=== PATIENT | female | born 1950 | race Asian ===

== ENCOUNTER 2017-01-05 17:12 | Inpatient (IN) | payer MEDICAID, MEDICARE ==
[~2017-01-05] VITALS: Ht 152.4 cm; Wt 45.4 kg
[~2017-01-05 17:12] MED LIST: ASPIRIN325 MG PO; BENICAR40 MG PO; NKM
[2017-01-05] MEDS ORDERED: DiphenhydrAMINE 50mg/ml Inj IVP ONE (17:30)
[2017-01-05] MEDS ORDERED: Metoclopramide 10mg/2ml Inj IVP ONE (17:30)
--- NOTE | 2017-01-05 17:51 | Emergency Room Report ---
History of Present Illness General Chief Complaint: Alcohol Intoxication Source: Patient, EMS Present Illness HPI Patient presents with complaints of abdominal pain Patient history is extremity difficult patient appears confused Does not follow commands appropriately and does not respond to questions appropriately Patient has been here previously has a colostomy in place Has also history of alcohol intoxication and there was question of alcohol ingestion today History of present illness is otherwise significantly limited Allergies: Coded Allergies: No Known Allergies (Unverified , 10/05/12) UNABLE TO ASSESS (Unverified , 10/29/12) Patient History Limited by: medical condition Past Medical History: see triage record Pertinent Family History: unable to obtain Now: No Reviewed Nursing Documentation: PMH: Agreed, PSxH: Agreed Nursing Documentation-PMH Past Medical History: No Stated History Hx Cardiac Problems: Yes Hx Hypertension: Yes Hx Diabetes: Yes Hx Cancer: No Hx Gastrointestinal Problems: Yes Hx Neurological Problems: No Review of Systems All Other Systems: limited - Other than the ones mentioned in the history of present illness all others are reviewed however they do stay limited due to the patient's mental status Physical Exam Vital Signs Date Time Temp Pulse Resp B/P Pulse Ox O2 Delivery O2 Flow Rate FiO2 01/05/17 17:14 97.5 89 16 117/75 99 Room Air Sp02 EP Interpretation: reviewed, normal General Appearance: no apparent distress Head: normocephalic, atraumatic Eyes: bilateral eye PERRL ENT: normal pharynx, no angioedema Neck: supple, thyroid normal Respiratory: lungs clear, normal breath sounds Cardiovascular #1: regular rate, rhythm, no edema, no gallop Gastrointestinal: other - Patient has a colostomy bag in the right lower quadrant Genitourinary: no CVA tenderness Musculoskeletal: other - Patient has severe deformity to bilateral feet otherwise no obvious focal deficit Neurologic: responsive - To physical stimuli, however the patient appears confused possibly inebriated Skin: normal color, no rash Lymphatic: no adenopathy Medical Decision Making Diagnostic Impression: Primary Impression: Acute alcoholic intoxication Additional Impressions: Alcoholic liver disease Diabetes ER Course Multiple differentials are considered Initially the patient's confusion and encephalopathy was unclear how the patient does have a significantly elevated alcohol level At this time patient is requiring significant time in the emergency room And will require further inpatient care for liver abnormalities and the continued encephalopathy Labs Test 01/05/17 17:45 01/06/17 04:20 01/06/17 05:20 White Blood Count 6.1 K/UL (4.8-10.8) 4.9 K/UL (4.8-10.8) Red Blood Count 3.48 M/UL (4.20-5.40) 3.34 M/UL (4.20-5.40) Hemoglobin 12.8 G/DL (12.0-16.0) 12.2 G/DL (12.0-16.0) Hematocrit 38.0 % (37.0-47.0) 35.9 % (37.0-47.0) Mean Corpuscular Volume 109 FL (80-99) 107 FL (80-99) Mean Corpuscular Hemoglobin 36.7 PG (27.0-31.0) 36.4 PG (27.0-31.0) Mean Corpuscular Hemoglobin Concent 33.6 G/DL (32.0-36.0) 33.9 G/DL (32.0-36.0) Red Cell Distribution Width 13.2 % (11.6-14.8) 13.6 % (11.6-14.8) Platelet Count 108 K/UL (150-450) 126 K/UL (150-450) Mean Platelet Volume 7.0 FL (6.5-10.1) 8.8 FL (6.5-10.1) Neutrophils (%) (Auto) 60.8 % (45.0-75.0) 67.4 % (45.0-75.0) Lymphocytes (%) (Auto) 28.5 % (20.0-45.0) 20.4 % (20.0-45.0) Monocytes (%) (Auto) 7.1 % (1.0-10.0) 8.3 % (1.0-10.0) Eosinophils (%) (Auto) 1.3 % (0.0-3.0) 1.9 % (0.0-3.0) Basophils (%) (Auto) 2.3 % (0.0-2.0) 2.0 % (0.0-2.0) Urine Color Pale yellow Urine Appearance Clear Urine pH 6.5 (4.5-8.0) Urine Specific [place] 1.005 (1.005-1.035) Urine Protein Negative (NEGATIVE) Urine Glucose (UA) Negative (NEGATIVE) Urine Ketones Negative (NEGATIVE) Urine Occult Blood Negative (NEGATIVE) Urine Nitrite Negative (NEGATIVE) Urine Bilirubin Negative (NEGATIVE) Urine Urobilinogen Normal MG/DL (0.0-1.0) Urine Leukocyte Esterase Negative (NEGATIVE) Sodium Level 134 mEQ/L (135-145) 141 mEQ/L (135-145) Potassium Level 3.5 mEQ/L (3.4-4.9) 3.8 mEQ/L (3.4-4.9) Chloride Level 92 mEQ/L (98-107) 102 mEQ/L (98-107) Carbon Dioxide Level 23 mEQ/L (20-30) 20 mEQ/L (20-30) Anion Gap 19 (5-15) 19 (5-15) Blood Urea Nitrogen 10 mg/dL (7-23) 8 mg/dL (7-23) Creatinine 0.6 mg/dL (0.5-0.9) 0.5 mg/dL (0.5-0.9) Estimat Glomerular Filtration Rate > 60 mL/min (>60) > 60 mL/min (>60) Glucose Level 151 mg/dL (74-106) 103 mg/dL (74-106) Calcium Level 9.1 mg/dL (8.6-10.2) 7.3 mg/dL (8.6-10.2) Total Bilirubin 1.6 mg/dL (0.0-1.2) 1.6 mg/dL (0.0-1.2) Direct Bilirubin 0.9 mg/dL (0.1-0.3) 0.7 mg/dL (0.1-0.3) Aspartate Amino Transf (AST/SGOT) 396 U/L (5-40) 312 U/L (5-40) Alanine Aminotransferase (ALT/SGPT) 150 U/L (3-33) 126 U/L (3-33) Alkaline Phosphatase 301 U/L (35-104) 214 U/L (35-104) Total Protein 7.7 g/dL (6.6-8.7) 6.2 g/dL (6.6-8.7) Albumin 3.2 g/dL (3.5-5.2) 2.5 g/dL (3.5-5.2) Globulin 4.5 g/dL 3.7 g/dL Albumin/Globulin Ratio 0.7 (1.0-2.7) 0.6 (1.0-2.7) Lipase 80 U/L (< 60) Serum Alcohol 363 mg/dL Amylase Level 49 U/L (10-110) EKG Diagnostic Results Rate: normal Rhythm: NSR ST Segments: no acute changes Rhythm Strip Diag. Results EP Interpretation: yes Rate: 77 Rhythm: NSR, no PVC's, no ectopy CT/MRI/US Diagnostic Results CT/MRI/US Diagnostic Results : Impression CT abdomen pelvisImpression: Equivocal mild infiltration of the peripancreatic fat, could indicate acute pancreatitis. Correlate with clinical findings and laboratory findings Distended bladder. Mild bilateral renal collecting system fullness, likely related to such Postsurgical changes, as described Ascites, new since previous study. Pneumobilia, also previously described. Correlate with any clinical history of an endobiliary intervention Fatty liver Incidental findings as described, including 12 mm left ovarian cyst, posterior dependent atelectatic changes, degenerative spondylosis Last Vital Signs Date Time Temp Pulse Resp B/P Pulse Ox O2 Delivery O2 Flow Rate FiO2 01/05/17 17:14 97.5 89 16 117/75 99 Room Air Status: improved Disposition: ADMITTED INPATIENT Condition: Serious KRYSTAL ROB D.O. Jan 05, 2017 17:51
[2017-01-05 17:52] VITALS: BP 117/75
[2017-01-05 18:05] LABS: BASOPHILS % (AUTO) 2.3 % (0.0-2.0); EOSINOPHILS % (AUTO) 1.3 % (0.0-3.0); LYMPHOCYTES % (AUTO) 28.5 % (20.0-45.0); MEAN CORPUSCULAR HEMOGLOBIN 36.7 PG (27.0-31.0); MEAN CORPUSCULAR HGB CONC 33.6 G/DL (32.0-36.0); MEAN CORPUSCULAR VOLUME 109 FL (80-99); MONOCYTES % (AUTO) 7.1 % (1.0-10.0); NEUTROPHILS % (AUTO) 60.8 % (45.0-75.0); PLATELET COUNT 108 K/UL (150-450); RED BLOOD COUNT 3.48 M/UL (4.20-5.40); RED CELL DISTRIBUTION WIDTH 13.2 % (11.6-14.8); WHITE BLOOD COUNT 6.1 K/UL (4.8-10.8)
[2017-01-05 18:18] LABS: APPEARANCE,URINE CLEAR; KETONES,URINE NEGATIVE (NEGATIVE); LEUKOCYTE ESTERASE ,URINE NEGATIVE (NEGATIVE); NITRITE,URINE NEGATIVE (NEGATIVE); PH,URINE 6.5 (4.5-8.0); PROTEIN,URINE NEGATIVE (NEGATIVE); UROBILINOGEN,URINE NORMAL MG/DL (0.0-1.0)
[2017-01-05 18:20] LABS: ALANINE AMINOTRANSFERASE 150 U/L (3-33); ALBUMIN/GLOBULIN RATIO 0.7 (1.0-2.7); ALCOHOL 363 mg/dL; ANION GAP 19 (5-15); ASPARTATE AMINO TRANSFERASE 396 U/L (5-40); CALCIUM 9.1 mg/dL (8.6-10.2); CARBON DIOXIDE 23 mEQ/L (20-30); CHLORIDE 92 mEQ/L (98-107); CREATININE 0.6 mg/dL (0.5-0.9); GLOMERULAR FILTRATION RATE > 60 mL/min (>60); HEMOLYSIS 24; LIPASE 80 U/L (< 60); POTASSIUM 3.5 mEQ/L (3.4-4.9); SODIUM 134 mEQ/L (135-145); TOTAL PROTEIN 7.7 g/dL (6.6-8.7)
[2017-01-05 18:34] LABS: BILIRUBIN,DIRECT 0.9 mg/dL (0.1-0.3)
[2017-01-05 19:40] VITALS: BP 114/62
[2017-01-05] MEDS ORDERED: Mylanta II UD 30ml ORAL PRN (19:45)
[2017-01-05] MEDS ORDERED: LORazepam Inj 2mg/ml 1ml IV PRN (19:45)
[2017-01-05] MEDS ORDERED: Morphine Sulfate 2mg/ml Inj IVP PRN (19:45)
[2017-01-05] MEDS ORDERED: chlordiazePOXIDE 25mg Cap ORAL PRN (19:45)
[2017-01-05] MEDS ORDERED: Zolpidem 5mg tab ORAL PRN (21:00)
[2017-01-05] MEDS ORDERED: Miralax 17gm pkt ORAL PRN (21:00)
[2017-01-05] MEDS: Folic Acid 1 MG, Magnesium Sulfate 2,000 MG, Multivitamin - 12 Injection 10 ML in NS w/... IV SCH (21:42)
[2017-01-05] MEDS: Thiamine 100 MG ivpb IVPB SCH ×2 (21:42)
[2017-01-05] MEDS: Heparin 5000 units/ml inj SUBQ SCH (21:43)
[2017-01-05 22:26] VITALS: BP 110/66
[2017-01-05 23:52] VITALS: BP 116/60
[2017-01-06] VITALS (9 sets, daily range): BP systolic 102–137; BP diastolic 55–80
[2017-01-06 04:44] LABS: EOSINOPHILS % (AUTO) 1.9 % (0.0-3.0); LYMPHOCYTES % (AUTO) 20.4 % (20.0-45.0); MEAN CORPUSCULAR HEMOGLOBIN 36.4 PG (27.0-31.0); MEAN CORPUSCULAR HGB CONC 33.9 G/DL (32.0-36.0); MEAN CORPUSCULAR VOLUME 107 FL (80-99); MEAN PLATELET VOLUME 8.8 FL (6.5-10.1); MONOCYTES % (AUTO) 8.3 % (1.0-10.0); NEUTROPHILS % (AUTO) 67.4 % (45.0-75.0); PLATELET COUNT 126 K/UL (150-450); RED BLOOD COUNT 3.34 M/UL (4.20-5.40); RED CELL DISTRIBUTION WIDTH 13.6 % (11.6-14.8); WHITE BLOOD COUNT 4.9 K/UL (4.8-10.8)
[2017-01-06 05:03] LABS: ALANINE AMINOTRANSFERASE 126 U/L (3-33); ALBUMIN/GLOBULIN RATIO 0.6 (1.0-2.7); ANION GAP 19 (5-15); ASPARTATE AMINO TRANSFERASE 312 U/L (5-40); CALCIUM 7.3 mg/dL (8.6-10.2); CARBON DIOXIDE 20 mEQ/L (20-30); CHLORIDE 102 mEQ/L (98-107); CREATININE 0.5 mg/dL (0.5-0.9); GLOMERULAR FILTRATION RATE > 60 mL/min (>60); POTASSIUM 3.8 mEQ/L (3.4-4.9); SODIUM 141 mEQ/L (135-145); TOTAL PROTEIN 6.2 g/dL (6.6-8.7)
[2017-01-06 05:16] LABS: BILIRUBIN,DIRECT 0.7 mg/dL (0.1-0.3); HEMOLYSIS 89
[2017-01-06] MEDS: Heparin 5000 units/ml inj SUBQ SCH ×2 (09:00→20:33)
--- NOTE | 2017-01-06 09:36 | Diagnostic Imaging Report ---
Indication: Abdominal pain, leukocytosis Technique: Spiral acquisitions obtained through the abdomen and pelvis. No oral contrast utilized, per emergency room physician request No IV contrast utilized, per referring physician request.. Multiplanar reconstructions were generated. Total dose length product 465 mGycm. CTDIvol(s) 9 mGy Comparison: 11/04/2015 Findings: Again demonstrated is evidence of prior colectomy and Horne procedure with a right lower quadrant ileostomy in place. There is a parastomal hernia, with multiple small bowel loops within the stoma. There is a small amount of ascites fluid, which is new finding since the previous exam. Small amount of ascites fluid is seen herniated within the stoma. No free intraperitoneal air. No small bowel distention. The distal esophagus,, duodenum are unremarkable. Lack of IV contrast limits assessment of the solid organs. There is pneumobilia now present area small amount of air is also seen within the gallbladder lumen. The liver is diffusely hypoattenuating, consistent with fatty change. No focal hepatic abnormality. There is slight indistinctness to the contours of the pancreas and slight infiltration of the peripancreatic fat. Spleen, adrenals adrenals are unremarkable. There is mild fullness to the bilateral renal collecting systems. The bladder is markedly distended. There is a 12 mm cyst in the left ovary. The uterus is unremarkable. There is posterior dependent atelectatic change at the lung bases. The bones demonstrate degenerative spondylosis changes Impression: Equivocal mild infiltration of the peripancreatic fat, could indicate acute pancreatitis. Correlate with clinical findings and laboratory findings Distended bladder. Mild bilateral renal collecting system fullness, likely related to such Postsurgical changes, as described Ascites, new since previous study. Pneumobilia, also previously described. Correlate with any clinical history of an endobiliary intervention Fatty liver Incidental findings as described, including 12 mm left ovarian cyst, posterior dependent atelectatic changes, degenerative spondylosis This agrees with the preliminary interpretation provided overnight by Dr. Neff The CT scanner at [facility] is accredited by the [employer] and the scans are performed using protocols designed to limit radiation exposure to as low as reasonably achievable to attain images of sufficient resolution adequate for diagnostic evaluation.
[2017-01-06] MEDS ORDERED: NovoLOG Insulin Flexpen SUBQ SCH (16:30)
--- NOTE | 2017-01-06 17:05 | Consultation ---
History of Present Illness General Date patient seen: Jan 06, 2017 Time patient seen: 14:00 Chief Complaint: Alcohol Intoxication Referring physician: dr Dixon Reason for Consultation: inpt management Present Illness HPI Patient presented with complaints of abdominal pain patient with colostomy for 2 months bowel protruded thru colostomy as per patient no change in output from colostomy patient with history of alcohol intoxication patient was unable to provide sufficient history due to ETOH intoxication serum ETOH level 383 All laboratory, microbiology and radiology results were reviewed.work revealed elevated LFT, T/D bili, elevated lipase low grade fever, no leukocytosis patient admitted for further management Allergies: Coded Allergies: No Known Allergies (Unverified , 10/05/12) UNABLE TO ASSESS (Unverified , 10/29/12) Medication History Scheduled No Known Medications* (NKM - No Known Medications*), 0 ., (Reported) Patient History Healthcare decision maker Resuscitation status Full Code Advanced Directive on File Past Medical/Surgical History Past Medical/Surgical History: (1) Hypokalemia (2) Hypomagnesemia (3) Alcoholic liver disease (4) ACS (acute coronary syndrome) (5) Diabetes (6) HTN (hypertension) Review of Systems ROS Narrative unable to obtain ROS due to patient being a poor historian Physical Exam General Appearance: no apparent distress, cachetic Lines, tubes and drains: peripheral HEENT: normocephalic, atraumatic, anicteric Neck: non-tender, supple Respiratory/Chest: no respiratory distress, no accessory muscle use Cardiovascular/Chest: normal peripheral pulses, normal rate, regular rhythm, no JVD Abdomen: normal bowel sounds, soft, other - colostomy with protruded bowel Extremities: non-tender, no calf tenderness, normal capillary refill Skin Exam: warm/dry Neurologic: no motor/sensory deficits, alert, responsive Last 24 Hour Vital Signs Date Time Temp Pulse Resp B/P Pulse Ox O2 Delivery O2 Flow Rate FiO2 01/06/17 16:48 97.3 01/06/17 16:00 100.2 107 16 133/69 95 Room Air 01/06/17 12:28 98.1 01/06/17 11:44 100.9 108 20 134/67 94 Room Air 01/06/17 08:20 100.2 98 18 137/80 94 Room Air 01/06/17 07:48 97.5 76 18 102/60 96 Room Air 01/06/17 07:42 97.5 76 18 102/60 96 Room Air 01/06/17 06:37 76 18 104/62 96 Room Air 01/06/17 05:32 76 16 111/58 96 Room Air 01/06/17 03:42 81 18 108/58 98 Room Air 01/06/17 01:12 84 18 111/55 98 Room Air 01/05/17 23:52 80 18 116/60 98 Room Air 01/05/17 22:26 97.5 80 16 110/66 99 Room Air 01/05/17 19:40 97.5 82 16 114/62 99 Room Air 01/05/17 17:52 97.5 89 16 117/75 99 Room Air 01/05/17 17:14 97.5 89 16 117/75 99 Room Air Intake and Output 01/05/17 01/06/17 19:00 07:00 Intake Total 1570.2 ml Balance 1570.2 ml IV Total 1570.2 ml # Voids 1 Laboratory Tests Test 01/05/17 17:45 01/06/17 04:20 White Blood Count 6.1 K/UL (4.8-10.8) 4.9 K/UL (4.8-10.8) Red Blood Count 3.48 M/UL (4.20-5.40) L 3.34 M/UL (4.20-5.40) L Hemoglobin 12.8 G/DL (12.0-16.0) 12.2 G/DL (12.0-16.0) Hematocrit 38.0 % (37.0-47.0) 35.9 % (37.0-47.0) L Mean Corpuscular Volume 109 FL (80-99) H 107 FL (80-99) H Mean Corpuscular Hemoglobin 36.7 PG (27.0-31.0) H 36.4 PG (27.0-31.0) H Mean Corpuscular Hemoglobin Concent 33.6 G/DL (32.0-36.0) 33.9 G/DL (32.0-36.0) Red Cell Distribution Width 13.2 % (11.6-14.8) 13.6 % (11.6-14.8) Platelet Count 108 K/UL (150-450) L 126 K/UL (150-450) L Mean Platelet Volume 7.0 FL (6.5-10.1) 8.8 FL (6.5-10.1) Neutrophils (%) (Auto) 60.8 % (45.0-75.0) 67.4 % (45.0-75.0) Lymphocytes (%) (Auto) 28.5 % (20.0-45.0) 20.4 % (20.0-45.0) Monocytes (%) (Auto) 7.1 % (1.0-10.0) 8.3 % (1.0-10.0) Eosinophils (%) (Auto) 1.3 % (0.0-3.0) 1.9 % (0.0-3.0) Basophils (%) (Auto) 2.3 % (0.0-2.0) H 2.0 % (0.0-2.0) Urine Color Pale yellow Urine Appearance Clear Urine pH 6.5 (4.5-8.0) Urine Specific [place] 1.005 (1.005-1.035) Urine Protein Negative (NEGATIVE) Urine Glucose (UA) Negative (NEGATIVE) Urine Ketones Negative (NEGATIVE) Urine Occult Blood Negative (NEGATIVE) Urine Nitrite Negative (NEGATIVE) Urine Bilirubin Negative (NEGATIVE) Urine Urobilinogen Normal MG/DL (0.0-1.0) Urine Leukocyte Esterase Negative (NEGATIVE) Sodium Level 134 mEQ/L (135-145) L 141 mEQ/L (135-145) Potassium Level 3.5 mEQ/L (3.4-4.9) 3.8 mEQ/L (3.4-4.9) Chloride Level 92 mEQ/L (98-107) L 102 mEQ/L (98-107) Carbon Dioxide Level 23 mEQ/L (20-30) 20 mEQ/L (20-30) Anion Gap 19 (5-15) H 19 (5-15) H Blood Urea Nitrogen 10 mg/dL (7-23) 8 mg/dL (7-23) Creatinine 0.6 mg/dL (0.5-0.9) 0.5 mg/dL (0.5-0.9) Estimat Glomerular Filtration Rate > 60 mL/min (>60) > 60 mL/min (>60) Glucose Level 151 mg/dL (74-106) H 103 mg/dL (74-106) Calcium Level 9.1 mg/dL (8.6-10.2) 7.3 mg/dL (8.6-10.2) L Total Bilirubin 1.6 mg/dL (0.0-1.2) H 1.6 mg/dL (0.0-1.2) H Direct Bilirubin 0.9 mg/dL (0.1-0.3) H 0.7 mg/dL (0.1-0.3) H Aspartate Amino Transf (AST/SGOT) 396 U/L (5-40) H 312 U/L (5-40) H Alanine Aminotransferase (ALT/SGPT) 150 U/L (3-33) H 126 U/L (3-33) H Alkaline Phosphatase 301 U/L (35-104) H 214 U/L (35-104) H Total Protein 7.7 g/dL (6.6-8.7) 6.2 g/dL (6.6-8.7) L Albumin 3.2 g/dL (3.5-5.2) L 2.5 g/dL (3.5-5.2) L Globulin 4.5 g/dL 3.7 g/dL Albumin/Globulin Ratio 0.7 (1.0-2.7) L 0.6 (1.0-2.7) L Lipase 80 U/L (< 60) H Serum Alcohol 363 mg/dL Height (Feet): 5 Height (Inches): 0.00 Weight (Pounds): 100 Medications Current Medications Medications (Trade) Dose Ordered Sig/Mini Route PRN Reason Start Time Stop Time Status Last Admin Dose Admin Acetaminophen (Tylenol) 650 mg Q4H PRN ORAL T>100.5 01/05/17 19:45 02/04/17 19:44 01/06/17 11:29 Al Hydroxide/Mg Hydroxide (Mylanta II) 30 ml Q6H PRN ORAL dyspepsia 01/05/17 19:45 02/04/17 19:44 Chlordiazepoxide 25 mg 25 mg Q6H PRN ORAL Agitation 01/05/17 19:45 01/12/17 19:44 Dextrose STAT PRN IV Hypoglycemia 01/05/17 19:45 02/04/17 19:44 Folic Acid/ Magnesium Sulfate/ Multivitamins/ Sodium Chloride (Folvite/ Magnesium Sulfate/ M.v.i.-12/NS w/ KCl 20mEq) 1,014.2 ml @ 125 mls/ hr Q24H IV 01/05/17 21:00 02/04/17 20:59 01/05/17 21:42 Heparin Sodium (Porcine) (Heparin 5000 units/ml) 5,000 units EVERY 12 HOURS SUBQ 01/05/17 21:00 02/04/17 20:59 01/05/17 21:43 Lorazepam (Ativan 2mg/ml 1ml) 2 mg EVERY HOUR PRN IV seizures 01/05/17 19:45 01/12/17 19:44 Morphine Sulfate (Morphine Sulfate) 1 mg Q4H PRN IVP PAIN 4-10 01/05/17 19:45 01/12/17 19:44 Ondansetron HCl (Zofran) 4 mg Q6H PRN IVP Nausea & Vomiting 01/05/17 19:45 02/04/17 19:44 Polyethylene Glycol (Miralax) 17 gm HSPRN PRN ORAL Constipation 01/05/17 21:00 02/04/17 20:59 Thiamine HCl/ Dextrose (Vitamin B1/D5W) 56 ml @ 112 mls/hr Q24H IVPB 01/05/17 21:00 02/04/17 20:59 01/05/17 21:42 Zolpidem Tartrate (Ambien) 5 mg HSPRN PRN ORAL Insomnia 01/05/17 21:00 02/04/17 20:59 Assessment/Plan Assessment/Plan ASSESSMENT abdominal pain colostomy protruded bowel ETOH intoxication alcoholic liver disease possible alcoholic gastritis HTN DM elevated transaminase elevated lipase PLAN OF CARE MS floor Banana bag Librium prn colorectal surgery consult as per PMD monitor colostomy output, colostomy care trend LFT, bili abdominal US BS management with SS of insulin BP stable, not on any anti HTN meds, add Clonidine prn DVT, GI prophylaxis case discussed and evaluated by supervising physician [facility] NP Jan 06, 2017 17:05
--- NOTE | 2017-01-06 17:16 | History & Physical ---
History and Physical History & Physicial Dictated for Int Med-Dr Dixon no. [id number]. LESLEE HITCHCOCK Jan 06, 2017 17:16
--- NOTE | 2017-01-06 18:24 | General Progress Note ---
HANK GRIER Jan 06, 2017 18:24
--- NOTE | 2017-01-06 18:26 | Consultation ---
Consult Note Consult Note Surgery consultation Very limited subjective as patient limited Citizen [place]. She reports Colostomy 2012 at [facility]. Not clear as to reason. Reports for a few weeks now she has had discomfort around the stoma with bulging. It has been functioning normal but more uncomfortable. Has not seen her physician. Had to come for coumadin to the hospital so figured to come and get this addressed at the same time maybe. Denies nausea/vomitting. Pain in last 24 hours not worse than prior 2 - 3 weeks - chronic and stable. Bulging everpresent. Stoma working, tolerating diet. PMHx: limited, on coumadin, PSHx: denies other surgery, colostomy and Od[place] SocHx: Denies etoh, non smoker FamHx: Denies cancer ROS reviewed - pertinents above AVSS NAD, AAO unlabored, soft, non distended, stoma pink and viable right abdomen with parastomal hernia, non tender around the stoma abdomen otherwise soft non tender, no distention Labs: WBC normal x2 days CT personaly reviwed - agree with radiologist -- bryant-pancreatic stranding, parastomal hernia without evidence of bowel obstruction or wall thickening to suggest bowel compromise, ascites in the abdomen noted. labs reviewed fully Assessment/Plan Parastomal Hernia non-emergent has been active for at least a few weeks she denies acute change, has not seen her primary surgeon outpatient follow up for this issue at moment, no indication for emergent surgical intervention notify if status changes. HANK GRIER Jan 06, 2017 18:26
[2017-01-06] MEDS: Folic Acid 1 MG, Magnesium Sulfate 2,000 MG, Multivitamin - 12 Injection 10 ML in NS w/... IV SCH (21:57)
[2017-01-06] MEDS: Thiamine 100 MG ivpb IVPB SCH ×2 (22:29)
--- NOTE | 2017-01-06 22:48 | History and Physical Report ---
DATE OF ADMISSION: 01/05/2017 CHIEF COMPLAINT: The patient is a 66-year-old male, who presents with chief complaint of abdominal pain. HISTORY OF PRESENT ILLNESS: Began one day prior to admission. History and physical is difficult to ascertain as the patient speaks Portuguese. The patient apparently began to experience abdominal pain yesterday. The patient presented to [facility] emergency room. The patient appeared to be intoxicated. The patient is admitted for abdominal pain to rule out acute on chronic pancreatitis. PAST MEDICAL HISTORY: 1. Diabetes type 2. 2. Hypertension. PAST SURGICAL HISTORY: Significant for colostomy. CURRENT MEDICATIONS: Aspirin and Benicar from the previous admission, however, it is unclear if the patient has been taking these. ALLERGIES: No known drug allergies. SOCIAL HISTORY: The patient is single and lives alone. The patient denies smoking. The patient does admit to alcohol use. REVIEW OF SYSTEMS: Constitutional: The patient denies weight loss or weight gain. The patient denies fevers or chills. HEENT: The patient denies ear or throat pain. Cardiovascular: The patient denies palpitations or chest pain. Chest: The patient denies wheezes or shortness of breath. Abdomen: The patient complains of epigastric pain. The patient denies nausea, vomiting, diarrhea, or constipation. Genitourinary: The patient denies dysuria or increased frequency of urination. Neuromuscular: The patient denies seizures or generalized weakness. PHYSICAL EXAMINATION: VITAL SIGNS: Temperature 97.5 degrees, respirations 18, pulse 76, and blood pressure 102/60. GENERAL: The patient is well-developed, thin appearing male, who is in moderate distress. HEENT: Eyes, pupils are equal and responsive to light and accommodation. Extraocular movements are intact NECK: Supple without lymphadenopathy. CHEST: Lungs are clear to auscultation bilaterally without wheeze or rales. CARDIOVASCULAR: Regular rhythm and rate. S1 and S2 are normal without murmurs, rubs, or gallops. ABDOMEN: Soft and diffusely tender with positive bowel sounds. No hepatosplenomegaly. Currently, no rebound or guarding. EXTREMITIES: No clubbing, cyanosis, or edema. RECTAL/GENITAL: Refused. NEUROLOGIC: Cranial nerves II through XII are grossly intact without focal deficits. Motor strength is 5/5 bilaterally. Deep tendon reflexes are 2+ plantar. LABORATORY STUDIES: WBC 6.1, hemoglobin 12.8, hematocrit 38.0, and platelets 108,000. Sodium 134, potassium 3.5, chloride 92, CO2 23, BUN 10, creatinine 0.6, and glucose 151. Liver function tests were elevated with AST of 396, ALT of 150, and alkaline phosphatase of 301. Total bilirubin is 1.6. IMAGING STUDIES: A CT scan of the abdomen revealed findings consistent with acute pancreatitis. ASSESSMENT: This is a 66-year-old male. 1. Abdominal pain. 2. Acute pancreatitis. 3. Nausea. 4. Diabetes type 2. 5. Hypertension. 6. Elevated liver function tests. TREATMENT: 1. Abdominal pain/nausea/acute pancreatitis/elevated liver function tests. A Gastroenterology consultation was obtained with Dr. Edu Gutierrez. The patient is currently tolerating a clear liquid diet. We will follow recommendations of Gastroenterology. 2. Diabetes type 2. The patient has been placed on a NovoLog sliding scale. 3. Hypertension. The patient has been placed on clonidine 0.1 mg p.r.n. for hypertension. Vinay Martines M.D. DR: KEO JOB#: [id number] CC:
[2017-01-07 04:00] VITALS: BP 113/67
[2017-01-07 07:31] VITALS: BP 129/75
[2017-01-07] MEDS: Heparin 5000 units/ml inj SUBQ SCH (09:00)
[2017-01-07 11:33] VITALS: BP 114/64
[2017-01-07 13:00] VITALS: BP 114/64
--- NOTE | 2017-01-07 13:18 | Pulmonology Progress Note ---
Assessment/Plan Assessment/Plan ASSESSMENT abdominal pain colostomy parastomal hernia ETOH intoxication alcoholic liver disease possible alcoholic gastritis HTN DM elevated transaminase elevated lipase PLAN OF CARE MS floor Banana bag Librium prn colorectal surgery consult noted monitor colostomy output, colostomy care per surgeon: non-emergent issue has been active for at least a few weeks she denies acute change, has not seen her primary surgeon outpatient follow up for this issue at moment, no indication for emergent surgical intervention trend LFT, bili-with minimal trend down abdominal US -pending BS management with SS of insulin BP stable, not on any anti HTN meds, add Clonidine prn DVT, GI prophylaxis patient wants to be discharged dc plan as per PMD counselor/art therapist on abstinence from ETOH case discussed and evaluated by supervising physician Parastomal Hernia Subjective Allergies: Coded Allergies: No Known Allergies (Unverified , 10/05/12) UNABLE TO ASSESS (Unverified , 10/29/12) Objective Last 24 Hour Vital Signs Date Time Temp Pulse Resp B/P Pulse Ox O2 Delivery O2 Flow Rate FiO2 01/07/17 13:00 114/64 01/07/17 11:33 98.4 91 15 114/64 94 Room Air 01/07/17 07:31 98.4 95 16 129/75 96 Room Air 01/07/17 04:00 98.2 87 19 113/67 94 Room Air 01/06/17 20:00 98.2 74 16 127/61 100 Room Air 01/06/17 16:48 97.3 01/06/17 16:00 100.2 107 16 133/69 95 Room Air Intake and Output 01/06/17 01/07/17 19:00 07:00 Intake Total 600 ml 861 ml Balance 600 ml 861 ml Intake Oral 600 ml 180 ml IV Total 681 ml # Voids 5 Objective General Appearance: no apparent distress, cachetic Lines, tubes and drains: peripheral HEENT: normocephalic, atraumatic, anicteric Neck: non-tender, supple Respiratory/Chest: no respiratory distress, no accessory muscle use Cardiovascular/Chest: normal peripheral pulses, normal rate, regular rhythm, no JVD Abdomen: normal bowel sounds, soft, other - colostomy with protruded bowel Extremities: non-tender, no calf tenderness, normal capillary refill Skin Exam: warm/dry Neurologic: no motor/sensory deficits, alert, responsive Microbiology Date/Time Source Procedure Growth Status 01/06/17 01:10 Nasal Nares MRSA Culture - Final Staphylococcus Aureus - Mrsa Complete Current Medications Medications (Trade) Dose Ordered Sig/Mini Route PRN Reason Start Time Stop Time Status Last Admin Dose Admin Acetaminophen (Tylenol) 650 mg Q4H PRN ORAL T>100.5 01/05/17 19:45 02/04/17 19:44 01/06/17 11:29 Al Hydroxide/Mg Hydroxide (Mylanta II) 30 ml Q6H PRN ORAL dyspepsia 01/05/17 19:45 02/04/17 19:44 Chlordiazepoxide 25 mg 25 mg Q6H PRN ORAL Agitation 01/05/17 19:45 01/12/17 19:44 Dextrose STAT PRN IV Hypoglycemia 01/05/17 19:45 02/04/17 19:44 Diphenhydramine HCl (Benadryl) 25 mg Q8HR PRN ORAL Itching 01/06/17 17:15 02/05/17 17:14 01/06/17 18:54 Folic Acid/ Magnesium Sulfate/ Multivitamins/ Sodium Chloride (Folvite/ Magnesium Sulfate/ M.v.i.-12/NS w/ KCl 20mEq) 1,014.2 ml @ 125 mls/ hr Q24H IV 01/05/17 21:00 02/04/17 20:59 01/06/17 21:57 Heparin Sodium (Porcine) (Heparin 5000 units/ml) 5,000 units EVERY 12 HOURS SUBQ 01/05/17 21:00 02/04/17 20:59 01/05/17 21:43 Lorazepam (Ativan 2mg/ml 1ml) 2 mg EVERY HOUR PRN IV seizures 01/05/17 19:45 01/12/17 19:44 Morphine Sulfate (Morphine Sulfate) 1 mg Q4H PRN IVP PAIN 4-10 01/05/17 19:45 01/12/17 19:44 Ondansetron HCl (Zofran) 4 mg Q6H PRN IVP Nausea & Vomiting 01/05/17 19:45 02/04/17 19:44 Pentoxifylline (TRENtal) 400 mg THREE TIMES A DAY ORAL 01/07/17 09:00 02/06/17 08:59 Polyethylene Glycol (Miralax) 17 gm HSPRN PRN ORAL Constipation 01/05/17 21:00 02/04/17 20:59 Ranitidine HCl (Zantac) 150 mg TWICE A DAY ORAL 01/06/17 18:00 02/05/17 17:59 01/06/17 18:04 Thiamine HCl/ Dextrose (Vitamin B1/D5W) 56 ml @ 112 mls/hr Q24H IVPB 01/05/17 21:00 02/04/17 20:59 01/06/17 22:29 Zolpidem Tartrate (Ambien) 5 mg HSPRN PRN ORAL Insomnia 01/05/17 21:00 02/04/17 20:59 Tevin ([facility])[place] NP Jan 07, 2017 13:18
--- NOTE | 2017-01-07 16:51 | Discharge Summary ---
Discharge Summary Hospital Course Date of Admission Jan 05, 2017 at 18:40 Date of Discharge Jan 07, 2017 at 14:11 Admitting Diagnosis ABDOMINAL PAIN DARA Thomas is a 66 year old female who was admitted on Jan 05, 2017 at 18:40 for Abdominal Pain Hospital Course patient did not wait for me to see her prior discharge Last 24 Hour Vital Signs Date Time Temp Pulse Resp B/P Pulse Ox O2 Delivery O2 Flow Rate FiO2 01/07/17 13:00 114/64 01/07/17 11:33 98.4 91 15 114/64 94 Room Air 01/07/17 07:31 98.4 95 16 129/75 96 Room Air 01/07/17 04:00 98.2 87 19 113/67 94 Room Air 01/06/17 20:00 98.2 74 16 127/61 100 Room Air discuss with Dr. Gayle, no surgical intervention needed at this point Discharge Discharge Disposition Patient was discharged to Discharge Diagnoses: Fernando Dixon MD Jan 07, 2017 16:51
--- NOTE | 2017-01-07 19:18 | Consultation ---
DATE OF CONSULTATION: 01/07/2017 CHIEF COMPLAINT: Abnormal liver functions. HISTORY OF PRESENT ILLNESS: The patient is a 66-year-old alcoholic Lao woman, was admitted to the hospital over a year ago here at [place]. She has history of alcoholism, alcoholic liver disease. She also has diabetes and hypertension. She was found to be drunk and was brought by the ambulance to [facility]. PAST MEDICAL HISTORY: 1. Alcoholism. 2. Diabetes. 3. Hypertension. 4. Possible cirrhosis. 5. Thrombocytopenia. 6. Abnormal liver function tests. 7. Ovarian cyst. 8. Prior history of colonic surgery and colostomy, not sure exactly what was the cause. MEDICATIONS: Please medication reconciliation list. ALLERGIES: No known drug allergies. SOCIAL HISTORY: The patient is alcoholic. There is no recent use of tobacco, alcohol, or drug abuse. FAMILY HISTORY: Noncontributory. REVIEW OF SYSTEMS: Limited. PHYSICAL EXAMINATION: VITAL SIGNS: Most recent vital signs, temperature is 98.4 degrees, pulse 95, respiratory rate 16, and blood pressure 129/75. HEENT: Normocephalic and atraumatic. Sclerae anicteric NECK: Supple. No lymphadenopathy. CARDIOVASCULAR: Regular rhythm. Plus S1 and S2. No obvious murmur. LUNGS: Clear to auscultation bilaterally. ABDOMEN: Positive bowel sounds. Soft and nontender. No rebound. No guarding. No peritoneal sign. The patient has a colostomy in the right lower quadrant. EXTREMITIES: No cyanosis, no clubbing, and no edema. LABORATORY AND DIAGNOSTIC DATA: White count is 4.9, hemoglobin 12, hematocrit 35, MCV of 107, and platelet count is 126,000. Chem-7, BUN is 8 and creatinine is 0.5. Bilirubin is 1.6. AST is 312, ALT of 126, and alkaline phosphatase of 214. Albumin is low at 2.5. ASSESSMENT AND PLAN: This is a 66-year-old alcoholic Lao woman with alcoholic liver disease. The patient had AST and ALT ratio of almost 3, so highly suggestive of alcoholic liver damage. Plan to start the patient on pentoxifylline. Follow up with abdominal ultrasound. Advance diet. Repeat laboratories for tomorrow. Send PT, PTT, and INR and ammonia level. The patient currently on banana bag. Edu Willis Gutierrez DR: LYNDA JOB#: [id number] CC:
== END 2017-01-07 14:11 | disposition left against medical advice (07) | DRG 254 ==
LOC: EDBD 17:12 → EDUNIT# 17:12 → EMR 18:18 → 4E 18:40 → EDBEDREQ 01-06 06:05 → 4E 01-06 20:35
DX: K43.5 Parastomal hernia without obstruction or gangrene (principal); K70.9 Alcoholic liver disease, unspecified; K94.09 Other complications of colostomy; F10.229 Alcohol dependence with intoxication, unspecified; K29.20 Alcoholic gastritis without bleeding; I10 Essential (primary) hypertension; E11.9 Type 2 diabetes mellitus without complications; Y83.8 Other surgical procedures as the cause of abnormal reaction of the patient, or of later complication, without mention of misadventure at the time of the procedure
CPT/HCPCS: 36415; 74176; 80053; 80329; 81003; 82150; 82248; 82962; 83690; 85025; 87081; J2765

== ENCOUNTER 2017-02-11 20:14 | Emergency (ER) | payer MEDICARE, MEDICAID ==
[~2017-02-11] VITALS: Ht 157.5 cm; Wt 49.9 kg
[2017-02-11] MEDS ORDERED: Metoclopramide 10mg/2ml Inj IVP ONE (20:30)
[2017-02-11] MEDS ORDERED: Famotidine 20 MG/ 2ML VIAL IVP ONE (20:30)
[2017-02-11] MEDS ORDERED: DiphenhydrAMINE 50mg/ml Inj IVP ONE (20:30)
--- NOTE | 2017-02-11 20:41 | Emergency Room Report ---
History of Present Illness General Chief Complaint: Pain Source: Patient, EMS Present Illness HPI Patient presents with pain around the colostomy site. She states it became severe today. She hasn't had any vomiting. She's had this type pain before. She was evaluated here in December a CT was done at that time. No surgical intervention was undertaken. She's been drinking alcohol today. She is concerned about her mother who is in the hospital at this time. She denies any blood in his stool however it appears that way. No dysuria, CP, SOB, joint pain. Anxious and depressed. Worry about mother. Allergies: Coded Allergies: No Known Allergies (Unverified , 10/05/12) UNABLE TO ASSESS (Unverified , 10/29/12) Patient History Past Medical History: see triage record Past Surgical History: other - colostomy Social History: Reports: alcohol use Social History Narrative at home Reviewed Nursing Documentation: PMH: Agreed, PSxH: Agreed Nursing Documentation-PMH Past Medical History: No History, Except For Hx Cardiac Problems: Yes Hx Hypertension: Yes Hx Diabetes: Yes - NIDDM Hx Cancer: No Hx Gastrointestinal Problems: Yes - Colostomy Bag Hx Neurological Problems: No Review of Systems All Other Systems: negative except mentioned in HPI Physical Exam Vital Signs Date Time Temp Pulse Resp B/P Pulse Ox O2 Delivery O2 Flow Rate FiO2 02/11/17 20:08 97.9 85 16 104/70 96 Room Air Sp02 EP Interpretation: reviewed, normal General Appearance: well appearing, no apparent distress, GCS 15 Head: normocephalic Eyes: bilateral eye PERRL, bilateral eye Scleral Injection ENT: moist mucus membranes - poor fitting plates Neck: supple Respiratory: lungs clear, normal breath sounds Cardiovascular #1: regular rate, rhythm Cardiovascular #2: 2+ radial (R) Gastrointestinal: normal inspection, normal bowel sounds, no mass, non- distended, no guarding, no rebound, tenderness, other - colostomy Musculoskeletal: back normal, normal range of motion Neurologic: alert, oriented x3 Psychiatric: depressed affect Skin: normal inspection, warm/dry Medical Decision Making Diagnostic Impression: Primary Impression: Abdominal pain Qualified Codes: R10.84 - Generalized abdominal pain Additional Impressions: Alcohol intoxication Qualified Codes: F10.129 - Alcohol abuse with intoxication, unspecified Colostomy in place ER Course Patient presents with abdominal pain. Mainly pain at colostomy site. Differential includes gastritis, diverticulitis, bowel obstruction amongst others. There is abundant stool there which excludes SBO. She also might have some blood in the stool. She smells of alcohol. The patient is evaluated with labs, x-ray. She's going to receive IV hydration Reglan Benadryl and Zofran. Addition Pepcid will be given. Labs with elevated lipase and alcohol 330. Xrays unremarkable. Improved and sleeping. Due to alcohol, will need re-evaluation in AM. Signed out to Dr. Romero. Laboratory Tests Test 02/11/17 20:50 02/11/17 21:59 White Blood Count 5.2 K/UL (4.8-10.8) Red Blood Count 2.62 M/UL (4.20-5.40) L Hemoglobin 10.6 G/DL (12.0-16.0) L Hematocrit 30.2 % (37.0-47.0) L Mean Corpuscular Volume 115 FL (80-99) H Mean Corpuscular Hemoglobin 40.5 PG (27.0-31.0) H Mean Corpuscular Hemoglobin Concent 35.2 G/DL (32.0-36.0) Red Cell Distribution Width 13.4 % (11.6-14.8) Platelet Count 137 K/UL (150-450) L Mean Platelet Volume 6.5 FL (6.5-10.1) Neutrophils (%) (Auto) % (45.0-75.0) Lymphocytes (%) (Auto) % (20.0-45.0) Monocytes (%) (Auto) % (1.0-10.0) Eosinophils (%) (Auto) % (0.0-3.0) Basophils (%) (Auto) % (0.0-2.0) Differential Total Cells Counted 100 Neutrophils % (Manual) 62 % (45-75) Lymphocytes % (Manual) 24 % (20-45) Monocytes % (Manual) 5 % (1-10) Eosinophils % (Manual) 4 % (0-3) H Basophils % (Manual) 2 % (0-2) Band Neutrophils 3 % (0-8) Platelet Estimate Decreased L Platelet Morphology Normal Hypochromasia 1+ Anisocytosis 1+ Prothrombin Time 14.3 SEC (9.30-11.50) H Prothrombin Time INR 1.4 (0.9-1.1) H PTT 31 SEC (23-33) Sodium Level 140 mEQ/L (135-145) Potassium Level 3.7 mEQ/L (3.4-4.9) Chloride Level 101 mEQ/L (98-107) Carbon Dioxide Level 25 mEQ/L (20-30) Anion Gap 14 (5-15) Blood Urea Nitrogen 16 mg/dL (7-23) Creatinine 0.6 mg/dL (0.5-0.9) Estimate Glomerular Filtration Rate > 60 mL/min (>60) Glucose Level 139 mg/dL (74-106) H Lactic Acid Level 2.20 mmol/L (0.66-2.22) Calcium Level 8.4 mg/dL (8.6-10.2) L Total Bilirubin 0.9 mg/dL (0.0-1.2) Aspartate Amino Transferase (AST) 154 U/L (5-40) H Alanine Aminotransferase (ALT) 89 U/L (3-33) H Alkaline Phosphatase 169 U/L (35-104) H Troponin I < 0.30 ng/mL (<=0.30) Total Protein 6.5 g/dL (6.6-8.7) L Albumin 3.0 g/dL (3.5-5.2) L Globulin 3.5 g/dL Albumin/Globulin Ratio 0.8 (1.0-2.7) L Lipase 121 U/L (< 60) H Serum Alcohol 330 mg/dL Urine Color Pale yellow Urine Appearance Clear Urine pH 6 (4.5-8.0) Urine Specific [place] 1.010 (1.005-1.035) Urine Protein Negative (NEGATIVE) Urine Glucose (UA) Negative (NEGATIVE) Urine Ketones Negative (NEGATIVE) Urine Occult Blood Negative (NEGATIVE) Urine Nitrite Negative (NEGATIVE) Urine Bilirubin Negative (NEGATIVE) Urine Urobilinogen Normal MG/DL (0.0-1.0) Urine Leukocyte Esterase Negative (NEGATIVE) Urine Opiates Screen Negative (NEGATIVE) Urine Barbiturates Screen Negative (NEGATIVE) Phencyclidine (PCP) Screen Negative (NEGATIVE) Urine Amphetamines Screen Negative (NEGATIVE) Urine Benzodiazepines Screen Negative (NEGATIVE) Urine Cocaine Screen Negative (NEGATIVE) Urine Marijuana (THC) Screen Negative (NEGATIVE) EKG Diagnostic Results Rate: normal Rhythm: NSR ST Segments: no acute changes Rhythm Strip Diag. Results EP Interpretation: yes Rhythm: NSR, no PVC's, no ectopy, other - from EKG Chest X-Ray Diagnostic Results EP Interpretation: Yes Findings: no effusion, no pneumothorax, other - chronic changes R Number of Views: 1 Other X-Ray Diagnostic Results Other X-Ray Diagnostic Results : X-Ray Ordered: abd EP Interpretation: Yes Findings: other - no mass, no obstruction, bladder with contrast Number of Views: 1 Last Vital Signs Date Time Temp Pulse Resp B/P Pulse Ox O2 Delivery O2 Flow Rate FiO2 02/11/17 22:00 98.0 80 18 111/72 99 Room Air Status: improved Condition: Improved Evan Garcia M.D. Feb 11, 2017 20:41
[2017-02-11 21:29] LABS: MEAN CORPUSCULAR HEMOGLOBIN 40.5 PG (27.0-31.0); MEAN CORPUSCULAR HGB CONC 35.2 G/DL (32.0-36.0); MEAN CORPUSCULAR VOLUME 115 FL (80-99); MEAN PLATELET VOLUME 6.5 FL (6.5-10.1); PLATELET COUNT 137 K/UL (150-450); RED BLOOD COUNT 2.62 M/UL (4.20-5.40); RED CELL DISTRIBUTION WIDTH 13.4 % (11.6-14.8); WHITE BLOOD COUNT 5.2 K/UL (4.8-10.8)
[2017-02-11 21:34] LABS: INR 1.4 (0.9-1.1); PROTHROMBIN TIME 14.3 SEC (9.30-11.50); TROPONIN I < 0.30 ng/mL (<=0.30)
[2017-02-11 21:37] LABS: ALANINE AMINOTRANSFERASE 89 U/L (3-33); ALBUMIN/GLOBULIN RATIO 0.8 (1.0-2.7); ALCOHOL 330 mg/dL; ASPARTATE AMINO TRANSFERASE 154 U/L (5-40); CALCIUM 8.4 mg/dL (8.6-10.2); CARBON DIOXIDE 25 mEQ/L (20-30); CHLORIDE 101 mEQ/L (98-107); CREATININE 0.6 mg/dL (0.5-0.9); GLOMERULAR FILTRATION RATE > 60 mL/min (>60); HEMOLYSIS 11; LIPASE 121 U/L (< 60); POTASSIUM 3.7 mEQ/L (3.4-4.9); SODIUM 140 mEQ/L (135-145); TOTAL PROTEIN 6.5 g/dL (6.6-8.7)
[2017-02-11 21:38] LABS: ANION GAP 14 (5-15); REFLEX LACTIC ACID YES OR NO YES
[2017-02-11 22:00] VITALS: BP 111/72
[2017-02-11 22:32] LABS: BAND NEUTROPHILS % (MANUAL) 3 % (0-8); BASOPHILS % (MANUAL) 2 % (0-2); EOSINOPHILS % (MANUAL) 4 % (0-3); LYMPHOCYTES % (MANUAL) 24 % (20-45); NEUTROPHILS % (MANUAL) 62 % (45-75); TOTAL CELLS COUNTED 100
[2017-02-11 22:33] LABS: ANISOCYTOSIS 1+; HYPOCHROMASIA 1+; PLATELET ESTIMATE DECREASED; PLATELET MORPHOLOGY NORMAL
[2017-02-11 22:38] LABS: APPEARANCE,URINE CLEAR; KETONES,URINE NEGATIVE (NEGATIVE); LEUKOCYTE ESTERASE ,URINE NEGATIVE (NEGATIVE); NITRITE,URINE NEGATIVE (NEGATIVE); PH,URINE 6 (4.5-8.0); PROTEIN,URINE NEGATIVE (NEGATIVE); UROBILINOGEN,URINE NORMAL MG/DL (0.0-1.0)
[2017-02-12 02:19] VITALS: BP 104/62
[2017-02-12 03:42] LABS: REFLEX LACTIC ACID YES OR NO YES
[2017-02-12] MEDS ORDERED: LIBRIUM10 MG ORAL (04:52)
[2017-02-12 06:20] VITALS: BP 115/71
[2017-02-12 06:38] VITALS: BP 115/71
--- NOTE | 2017-02-12 09:12 | Diagnostic Imaging Report ---
Indications: Cough Technique: Portable AP chest Findings: Comparison: 11/03/2015 Mild elevation of the apparent right hemidiaphragm, mild calcification and elongation of the thoracic aorta are unchanged. Bones and remaining extra pulmonary soft tissues, remainder of the cardiomediastinal silhouette, pulmonary vasculature and parenchyma, and pleural surfaces remain unremarkable in appearance. IMPRESSION: No evidence of acute cardiopulmonary disease, unchanged Stable chronic changes as described
--- NOTE | 2017-02-13 09:42 | Diagnostic Imaging Report ---
Indications: Lower abdominal pain. Technique: AP view of the abdomen Findings: Comparison: Noncontrast CT abdomen pelvis 01/05/17. Bowel gas pattern is unremarkable. Urinary bladder distended by excreted contrast. 6 cm triangular opacity similar in density to contrast in bladder overlies right iliac wing. No other abnormal calcific or soft tissue densities are demonstrated. Small osteophytes at lumbar intervertebral disc spaces.. IMPRESSION: Density overlying right iliac wing is of uncertain etiology, could represent contrast in either bowel or an extraluminal collection. This may or may not relate to colostomy in this region demonstrated on prior CT scan. CT scan of the abdomen and pelvis without and with IV contrast recommended for further evaluation. No other evidence of acute abdominopelvic disease Excreted contrast in urinary bladder indicates recent prior intravascular contrast injection. If this was performed in conjunction with cross-sectional imaging recently performed at an outside facility (none here), then recommend obtaining that recent scan. Mild degenerative spondylosis
== END 2017-02-12 06:40 | disposition home or self-care (01) ==
LOC: EDBD 20:14 → EMR 20:30
DX: R10.84 Generalized abdominal pain (principal); F10.129 Alcohol abuse with intoxication, unspecified; Z93.3 Colostomy status; E11.9 Type 2 diabetes mellitus without complications; I10 Essential (primary) hypertension; G89.29 Other chronic pain
CPT/HCPCS: 36415; 71010; 74020; 80053; 80300; 81003; 83605; 83690; 84484; 85007; 85025; 85610; 85730; 93005; 96360; 96361; 96374; 96375; 99284; G0480; J1200; J2405; J2765; S0028; 80329

== ENCOUNTER 2017-03-05 18:16 | Emergency (ER) | payer MEDICARE, MEDICAID ==
[~2017-03-05] VITALS: Ht 157.5 cm; Wt 54.4 kg
[~2017-03-05 18:16] MED LIST changes: +LIBRIUM10 MG ORAL
[2017-03-05 19:10] VITALS: BP 97/60
--- NOTE | 2017-03-05 19:43 | Emergency Room Report ---
History of Present Illness General Chief Complaint: Alcohol Intoxication Source: Patient, Medical Record, EMS Present Illness HPI 66YOF BIBEMS for alleged acute on chronic ETOH intoxication. Patient is Turkish speaking only. No other family members or friends are present. Per EMR, multiple visits here for ETOH intoxication previously. HPI otherwise limited as patient is intoxicated. Allergies: Coded Allergies: No Known Allergies (Unverified , 10/05/12) UNABLE TO ASSESS (Unverified , 10/29/12) Patient History Limited by: medical condition Past Medical History: unable to obtain Past Surgical History: unable to obtain Social History: Reports: alcohol use Last Menstrual Period: na Now: No Immunizations: UTD Reviewed Nursing Documentation: PMH: Agreed, PSxH: Agreed Nursing Documentation-PMH Past Medical History: No History, Except For Hx Cardiac Problems: Yes Hx Hypertension: Yes Hx Diabetes: Yes - NIDDM Hx Cancer: No Hx Gastrointestinal Problems: Yes - colostomy History Of Psychiatric Problem: Yes - etoh abuse Hx Neurological Problems: No Review of Systems All Other Systems: negative except mentioned in HPI Physical Exam Vital Signs Date Time Temp Pulse Resp B/P Pulse Ox O2 Delivery O2 Flow Rate FiO2 03/05/17 18:09 98.6 98 16 118/62 98 Room Air Sp02 EP Interpretation: reviewed, normal General Appearance: normal inspection, well appearing, no apparent distress, alert, non-toxic, other - +AOB Head: normocephalic, atraumatic Eyes: bilateral eye EOMI, bilateral eye PERRL ENT: normal ENT inspection, normal pharynx, no angioedema Neck: normal inspection, full range of motion, supple, no bony tend Respiratory: normal inspection, lungs clear, normal breath sounds, no rhonchi, no respiratory distress, no retraction, no accessory muscle use, no wheezing Cardiovascular #1: regular rate, rhythm, no edema Gastrointestinal: normal inspection, normal bowel sounds, non tender, soft, no guarding, no hernia Genitourinary: no CVA tenderness Musculoskeletal: normal inspection, back normal, normal range of motion, Kimberlyn' s Sign negative Neurologic: normal inspection, alert, oriented x3, responsive, dealer analyst III-XII nml as tested, motor strength/tone normal, speech normal Psychiatric: normal inspection, judgement/insight normal, mood/affect normal Skin: normal inspection, normal color, no rash Lymphatic: normal inspection Medical Decision Making Diagnostic Impression: Primary Impression: Acute alcoholic intoxication Qualified Codes: F10.120 - Alcohol abuse with intoxication, uncomplicated Additional Impression: Alcoholic hepatitis Qualified Codes: K70.10 - Alcoholic hepatitis without ascites ER Course 66YOF with acute on chronic ETOH intoxication VSS. Afebrile. Moving all extremities Atraumatic Labs:No leuks. H&H stable. ETOH level 346. Elevated LFTs c/w previous, likely alcoholic hepatitis from chronic ETOH. Endorsed to Dr Romero at 930pm to followup for disposition pending sobriety Last Vital Signs Date Time Temp Pulse Resp B/P Pulse Ox O2 Delivery O2 Flow Rate FiO2 03/05/17 18:09 98.6 98 16 118/62 98 Room Air Referrals: NOT CHOSEN IPA/,REFERRING (PCP) KVNG CHOI M.D. March 05, 2017 19:43
[2017-03-05 19:51] LABS: MEAN CORPUSCULAR HGB CONC 34.9 G/DL (32.0-36.0); MEAN CORPUSCULAR VOLUME 120 FL (80-99); MEAN PLATELET VOLUME 5.8 FL (6.5-10.1); PLATELET COUNT 187 K/UL (150-450); RED BLOOD COUNT 2.35 M/UL (4.20-5.40); RED CELL DISTRIBUTION WIDTH 14.3 % (11.6-14.8); WHITE BLOOD COUNT 6.1 K/UL (4.8-10.8)
[2017-03-05 20:10] LABS: ALANINE AMINOTRANSFERASE 68 U/L (3-33); ALBUMIN/GLOBULIN RATIO 0.7 (1.0-2.7); ALCOHOL 346 mg/dL; ANION GAP 16 (5-15); ASPARTATE AMINO TRANSFERASE 127 U/L (5-40); CALCIUM 8.6 mg/dL (8.6-10.2); CARBON DIOXIDE 21 mEQ/L (20-30); CHLORIDE 101 mEQ/L (98-107); CREATININE 0.5 mg/dL (0.5-0.9); GLOMERULAR FILTRATION RATE > 60 mL/min (>60); HEMOLYSIS 44; POTASSIUM 3.7 mEQ/L (3.4-4.9); SODIUM 138 mEQ/L (135-145); TOTAL PROTEIN 6.9 g/dL (6.6-8.7)
[2017-03-05 20:42] LABS: TOTAL CELLS COUNTED 100
[2017-03-05 20:43] LABS: BAND NEUTROPHILS % (MANUAL) 0 % (0-8); BASOPHILS % (MANUAL) 0 % (0-2); EOSINOPHILS % (MANUAL) 2 % (0-3); LYMPHOCYTES % (MANUAL) 35 % (20-45); NEUTROPHILS % (MANUAL) 57 % (45-75); PLATELET ESTIMATE ADEQUATE
[2017-03-05 20:44] LABS: ANISOCYTOSIS 1+; MACROCYTES 1+; PLATELET MORPHOLOGY NORMAL
[2017-03-05 21:54] VITALS: BP 98/54
[2017-03-05 23:00] VITALS: BP 105/52
[2017-03-06 00:57] VITALS: BP 88/52
[2017-03-06 00:59] VITALS: BP 94/56
[2017-03-06 01:50] VITALS: BP 87/53
[2017-03-06 02:30] VITALS: BP 108/59
[2017-03-06 06:25] VITALS: BP 103/50
[2017-03-07] MEDS ORDERED: PEPCID20 MG ORAL (14:34)
[2017-03-07] MEDS ORDERED: ZOFRAN ODT4 MG ORAL (14:34)
== END 2017-03-06 06:35 | disposition home or self-care (01) ==
LOC: EDBD 18:16 → EMR 18:49
DX: F10.129 Alcohol abuse with intoxication, unspecified (principal); K70.10 Alcoholic hepatitis without ascites; Y90.8 Blood alcohol level of 240 mg/100 ml or more; I10 Essential (primary) hypertension; E11.9 Type 2 diabetes mellitus without complications; Z93.3 Colostomy status
CPT/HCPCS: 36415; 80053; 82962; 85007; 85025; 96374; 96375; 99284; G0480; 80329

== ENCOUNTER 2017-03-07 12:18 | Emergency (ER) | payer MEDICARE, MEDICAID ==
[~2017-03-07] VITALS: Ht 157.5 cm; Wt 63.5 kg
[2017-03-07] MEDS ORDERED: Metoclopramide 10mg/2ml Inj IVP ONE (12:30)
[2017-03-07] MEDS ORDERED: DiphenhydrAMINE 50mg/ml Inj IVP ONE (12:30)
--- NOTE | 2017-03-07 13:00 | Emergency Room Report ---
History of Present Illness General Chief Complaint: Abdominal Pain Source: Patient, EMS Present Illness HPI Patient presents complaining about abdominal pain. Patient been here multiple times and recently. She drinks alcohol. She's had a colostomy in the past. She denies any vomiting or hematemesis to me. She also denies any blood in the stool or melena. She's been seen for similar problem multiple times recently. Denies CP, sob, dysuria. She is upset as her mother is in the hospital. Diabetic, not know blood sugars recently. Allergies: Coded Allergies: No Known Allergies (Unverified , 10/05/12) UNABLE TO ASSESS (Unverified , 10/29/12) Patient History Past Medical History: see triage record, old chart reviewed Social History: Reports: alcohol use Social History Narrative at home Reviewed Nursing Documentation: PMH: Agreed, PSxH: Agreed Nursing Documentation-PMH Past Medical History: No History, Except For Hx Cardiac Problems: Yes Hx Hypertension: Yes Hx Diabetes: Yes - NIDDM Hx Cancer: No Hx Gastrointestinal Problems: Yes - colostomy Hx Neurological Problems: No Review of Systems All Other Systems: negative except mentioned in HPI Physical Exam Vital Signs Date Time Temp Pulse Resp B/P Pulse Ox O2 Delivery O2 Flow Rate FiO2 03/07/17 12:24 97.9 98 18 120/77 99 Room Air Sp02 EP Interpretation: reviewed, normal General Appearance: alert, non-toxic, other - dishevelled - labile but cooperative ultimately Head: normocephalic Eyes: bilateral eye PERRL, bilateral eye Scleral Injection ENT: moist mucus membranes Neck: supple Respiratory: lungs clear, normal breath sounds Cardiovascular #1: regular rate, rhythm Cardiovascular #2: 2+ radial (R) Gastrointestinal: normal inspection, normal bowel sounds, no mass, non- distended, no guarding, no rebound, tenderness, other - colostomy with brown stool Musculoskeletal: back normal, gait/station normal, normal range of motion Neurologic: alert, DTRs symmetric, normal gait, oriented - X2 Psychiatric: no suicidal/homicidal ideation, other - labile Skin: normal inspection, warm/dry Medical Decision Making Diagnostic Impression: Primary Impression: Abdominal pain Qualified Codes: R10.84 - Generalized abdominal pain Additional Impression: Alcohol intoxication Qualified Codes: F10.129 - Alcohol abuse with intoxication, unspecified ER Course Patient presents with abdominal pain. Differential includes gastritis, peptic ulcer disease, pancreatitis or an adverse reaction to alcohol. To be evaluated with labs and abdominal films. She'll be treated with IV hydration Reglan and Benadryl. Ambulatory and somewhat histrionic. Labs significant for elevated alcohol and LFTs. WBC and H/H stable. Patient sleeping after medication. Signed out to Dr. Aguilera. Laboratory Tests Test 03/07/17 13:25 White Blood Count 5.2 K/UL (4.8-10.8) Red Blood Count 2.81 M/UL (4.20-5.40) L Hemoglobin 10.7 G/DL (12.0-16.0) L Hematocrit 34.4 % (37.0-47.0) L Mean Corpuscular Volume 123 FL (80-99) H Mean Corpuscular Hemoglobin 38.0 PG (27.0-31.0) H Mean Corpuscular Hemoglobin Concent 31.0 G/DL (32.0-36.0) L Red Cell Distribution Width 14.7 % (11.6-14.8) Platelet Count 217 K/UL (150-450) Mean Platelet Volume 6.2 FL (6.5-10.1) L Neutrophils (%) (Auto) % (45.0-75.0) Lymphocytes (%) (Auto) % (20.0-45.0) Monocytes (%) (Auto) % (1.0-10.0) Eosinophils (%) (Auto) % (0.0-3.0) Basophils (%) (Auto) % (0.0-2.0) Differential Total Cells Counted 100 Neutrophils % (Manual) 64 % (45-75) Lymphocytes % (Manual) 27 % (20-45) Monocytes % (Manual) 3 % (1-10) Eosinophils % (Manual) 1 % (0-3) Basophils % (Manual) 5 % (0-2) H Band Neutrophils 0 % (0-8) Platelet Estimate Adequate Platelet Morphology Normal Hypochromasia 1+ Anisocytosis 1+ Macrocytosis 3+ Prothrombin Time 13.4 SEC (9.30-11.50) H Prothrombin Time INR 1.3 (0.9-1.1) H PTT 28 SEC (23-33) Urine Color Pale yellow Urine Appearance Clear Urine pH 5 (4.5-8.0) Urine Specific [place] 1.010 (1.005-1.035) Urine Protein Negative (NEGATIVE) Urine Glucose (UA) Negative (NEGATIVE) Urine Ketones Negative (NEGATIVE) Urine Occult Blood Negative (NEGATIVE) Urine Nitrite Negative (NEGATIVE) Urine Bilirubin Negative (NEGATIVE) Urine Urobilinogen Normal MG/DL (0.0-1.0) Urine Leukocyte Esterase 1+ (NEGATIVE) H Urine RBC 0-2 /HPF (0 - 2) Urine WBC 2-4 /HPF (0 - 2) Urine Squamous Epithelial Cells Few /LPF (NONE/OCC) Urine Bacteria Few /HPF (NONE) Sodium Level 140 mEQ/L (135-145) Potassium Level 3.9 mEQ/L (3.4-4.9) Chloride Level 103 mEQ/L (98-107) Carbon Dioxide Level 22 mEQ/L (20-30) Anion Gap 15 (5-15) Blood Urea Nitrogen 13 mg/dL (7-23) Creatinine 0.6 mg/dL (0.5-0.9) Estimate Glomerular Filtration Rate > 60 mL/min (>60) Glucose Level 101 mg/dL (74-106) Calcium Level 7.9 mg/dL (8.6-10.2) L Total Bilirubin 0.7 mg/dL (0.0-1.2) Aspartate Amino Transferase (AST) 127 U/L (5-40) H Alanine Aminotransferase (ALT) 67 U/L (3-33) H Alkaline Phosphatase 123 U/L (35-104) H Total Protein 7.1 g/dL (6.6-8.7) Albumin 3.2 g/dL (3.5-5.2) L Globulin 3.9 g/dL Albumin/Globulin Ratio 0.8 (1.0-2.7) L Lipase 48 U/L (< 60) Serum Alcohol 345 mg/dL Other X-Ray Diagnostic Results Other X-Ray Diagnostic Results : X-Ray Ordered: abd EP Interpretation: Yes Findings: other - no SBO, colostomy, no masses, NSBGP Number of Views: 1 Status: improved Disposition: HOME, SELF-CARE Condition: Improved Scripts Ondansetron Odt* (ZOFRAN ODT*) 4 Mg Tab.rapdis 4 MG ORAL Q6H Y for Nausea & Vomiting, #6 TAB 0 Refills Prov: Evan Garcia M.D. 03/07/17 Famotidine (PEPCID) 20 Mg Tablet 20 MG ORAL DAILY, #30 TAB 0 Refills Prov: Evan Garcia M.D. 03/07/17 Referrals: NOT CHOSEN REBECCA/,REFERRING (PCP) Evan Garcia M.D. March 07, 2017 13:00
[2017-03-07 13:45] VITALS: BP 121/64
[2017-03-07 14:07] LABS: MEAN CORPUSCULAR VOLUME 123 FL (80-99); MEAN PLATELET VOLUME 6.2 FL (6.5-10.1); PLATELET COUNT 217 K/UL (150-450); RED BLOOD COUNT 2.81 M/UL (4.20-5.40); RED CELL DISTRIBUTION WIDTH 14.7 % (11.6-14.8); WHITE BLOOD COUNT 5.2 K/UL (4.8-10.8)
[2017-03-07 14:15] LABS: APPEARANCE,URINE CLEAR; KETONES,URINE NEGATIVE (NEGATIVE); LEUKOCYTE ESTERASE ,URINE 1+ (NEGATIVE); NITRITE,URINE NEGATIVE (NEGATIVE); PH,URINE 5 (4.5-8.0); PROTEIN,URINE NEGATIVE (NEGATIVE); UROBILINOGEN,URINE NORMAL MG/DL (0.0-1.0)
[2017-03-07 14:19] LABS: INR 1.3 (0.9-1.1); PROTHROMBIN TIME 13.4 SEC (9.30-11.50)
[2017-03-07 14:25] VITALS: BP 107/64
[2017-03-07 14:26] LABS: BACTERIA,URINE FEW /HPF; RBC,URINE 0-2 /HPF (0 - 2); SQUAMOUS EPITHELIAL CELL,UR FEW /LPF (NONE/OCC)
[2017-03-07 14:28] LABS: ALANINE AMINOTRANSFERASE 67 U/L (3-33); ALBUMIN/GLOBULIN RATIO 0.8 (1.0-2.7); ALCOHOL 345 mg/dL; ANION GAP 15 (5-15); ASPARTATE AMINO TRANSFERASE 127 U/L (5-40); CALCIUM 7.9 mg/dL (8.6-10.2); CARBON DIOXIDE 22 mEQ/L (20-30); CHLORIDE 103 mEQ/L (98-107); CREATININE 0.6 mg/dL (0.5-0.9); GLOMERULAR FILTRATION RATE > 60 mL/min (>60); HEMOLYSIS 27; LIPASE 48 U/L (< 60); POTASSIUM 3.9 mEQ/L (3.4-4.9); SODIUM 140 mEQ/L (135-145); TOTAL PROTEIN 7.1 g/dL (6.6-8.7)
[2017-03-07] MEDS ORDERED: ZOFRAN ODT4 MG ORAL (14:34)
[2017-03-07] MEDS ORDERED: PEPCID20 MG ORAL (14:34)
[2017-03-07 14:51] VITALS: BP 105/53
[2017-03-07 14:57] LABS: BAND NEUTROPHILS % (MANUAL) 0 % (0-8); BASOPHILS % (MANUAL) 5 % (0-2); EOSINOPHILS % (MANUAL) 1 % (0-3); HYPOCHROMASIA 1+; LYMPHOCYTES % (MANUAL) 27 % (20-45); NEUTROPHILS % (MANUAL) 64 % (45-75); PLATELET ESTIMATE ADEQUATE; TOTAL CELLS COUNTED 100
[2017-03-07 14:58] LABS: MACROCYTES 3+; PLATELET MORPHOLOGY NORMAL
[2017-03-07 14:59] LABS: ANISOCYTOSIS 1+
[2017-03-07 15:47] VITALS: BP 108/58
--- NOTE | 2017-03-07 15:50 | Diagnostic Imaging Report ---
Indications: Abdominal pain. Technique: AP view of the abdomen Findings: Comparison: 02/11/17. Gas-filled, very mildly distended small bowel now noted in the abdominal right lower quadrant. Increased density is again noted overlying the right iliac wing, corresponding to site of patient's ostomy. Bowel gas pattern is otherwise unremarkable. No abnormal calcific or soft tissue densities are demonstrated. Mild degenerative changes again noted in lumbar spine.. IMPRESSION: Nonspecific mild small bowel distention in right lower quadrant adjacent to ostomy, not overtly obstructive in appearance, may represent residual ileus, etiology indeterminate.
[2017-03-07 16:23] VITALS: BP 110/58
[2017-03-07 18:00] VITALS: BP 102/55
== END 2017-03-07 18:00 | disposition home or self-care (01) ==
LOC: EDBD 12:18 → EDUNIT# 12:18 → EMR 12:45
DX: R10.9 Unspecified abdominal pain (principal); F10.129 Alcohol abuse with intoxication, unspecified; I10 Essential (primary) hypertension; E11.9 Type 2 diabetes mellitus without complications; Z93.3 Colostomy status
CPT/HCPCS: 36415; 74000; 80053; 81003; 83690; 85007; 85025; 85610; 85730; 96374; 96375; 99284; G0480; J1200; J2765; 80329